=== PATIENT | female | born 1940 | race Caucasian/White ===

== ENCOUNTER 2018-11-23 08:22 | Emergency (ER) | payer MEDICARE, BC ==
[2018-11-23] MEDS: morphine 4 MG/ML VIAL IV (10:29)
[2018-11-23] MEDS: ONDANSETRON 4 MG INJ IV ×2 (10:29→13:38)
[2018-11-23 10:54] LABS: ADD MAN DIFF? NO
[2018-11-23 10:58] LABS: BASOPHIL # 0.1 10^3/ul (0.0-0.1); BASOPHILS % 0.8 % (0.0-2.0); EOSINOPHILS # 0.1 10^3/ul (0.0-0.5); HEMATOCRIT 47.3 % (37.0-47.0); LYMPHOCYTES # 1.9 10^3/ul (0.8-2.9); LYMPHOCYTES % 30.9 % (15.0-51.0); MEAN CORPUSCULAR HEMOGLOBIN 26.5 pg (29.0-33.0); MEAN CORPUSCULAR HGB CONC 33.8 g/dl (32.0-37.0); MEAN CORPUSCULAR VOLUME 78.4 fl (82.0-101.0); MEAN PLATELET VOLUME 10.4 fl (7.4-10.4); MONOCYTE # 0.5 10^3/ul (0.3-0.9); MONOCYTES % 7.4 % (0.0-11.0); NEUTROPHIL # 3.7 10^3/ul (1.6-7.5); NEUTROPHILS % 59.6 % (39.0-77.0); PLATELET COUNT 249 10^3/UL (140-415); RED BLOOD COUNT 6.03 10^6/ul (4.20-5.40); RED CELL DISTRIBUTION WIDTH 13.8 % (11.5-14.5)
[2018-11-23 10:58] LABS: WHITE BLOOD COUNT 6.2 10^3/ul (4.8-10.8)
[2018-11-23 11:15] LABS: ANION GAP 12 (5-13); BLOOD UREA NITROGEN 25 mg/dl (7-20); CALCIUM 10.4 mg/dl (8.4-10.2); CARBON DIOXIDE 21 mmol/L (21-31); CHLORIDE 107 mmol/L (97-110); CREATININE 0.69 mg/dl (0.44-1.00); GLUCOSE 181 mg/dl (70-220); POTASSIUM 4.5 mmol/L (3.5-5.1); SODIUM 140 mmol/L (135-144)
[2018-11-23] MEDS: METOCLOPRAMIDE 10 MG INJ IV (12:29)
[2018-11-23] MEDS: SOD CHLORIDE 0.9% 500 ML IV (13:38)
== END 2018-11-23 15:50 | disposition home or self-care (01) ==
LOC: FTE 08:22 → E/R 15:50
DX: M25.512 Pain in left shoulder (principal); E11.9 Type 2 diabetes mellitus without complications; I10 Essential (primary) hypertension; M19.90 Unspecified osteoarthritis, unspecified site; M54.5 Low back pain; Z79.4 Long term (current) use of insulin
CPT/HCPCS: 73030; 80048; 85025; 96374; 96375; 96376; 99284-25

== ENCOUNTER → 2018-12-26 | Outpatient (CLI) | payer MEDICARE, BC | END | disposition home or self-care (01) | LOC: C/S 10:36 | DX: N28.1 Cyst of kidney, acquired (principal); K86.1 Other chronic pancreatitis; K76.0 Fatty (change of) liver, not elsewhere classified; M43.16 Spondylolisthesis, lumbar region; R10.9 Unspecified abdominal pain | CPT/HCPCS: 74150 ==